=== PATIENT | female | born 1965 | race Caucasian/White ===

== ENCOUNTER 2018-09-12 07:36 | Emergency (ER) | payer OTHER ==
[~2018-09-12] VITALS: Wt 84.5 kg
[2018-09-12] MEDS ORDERED: KETOROLAC 30 MG INJ IV STA (08:18)
[2018-09-12] MEDS ORDERED: SOD CHLORIDE 0.9% 1,000 ML IV STA (08:18)
[2018-09-12] MEDS ORDERED: DEXAMETHASONE 10 MG/ML 1 ML INJ IV ONE (08:30)
[2018-09-12] MEDS ORDERED: CEFTRIAXONE 1 GM/50 ML (PMX) 50 ML IVPB ONE (08:30)
[2018-09-12] MEDS ORDERED: CEPH-443 PO (10:26)
[2018-09-12] MEDS ORDERED: SULF1TAB31 PO (10:26)
[2018-09-12] MEDS ORDERED: IBUP800T48 PO (10:27)
[2018-09-12] MEDS ORDERED: COLC0.6T6 PO (10:41)
[2018-09-12 10:42] VITALS: BP 102/59; PULSE 67; RESP 16
--- NOTE | 2018-09-12 11:08 | ERD ---
ER Documentation Chief Complaint Chief Complaint R HAND PAIN X 7 DAYS HPI 53-year-old female presenting with pain to right hand for the last 7 days. She states it started out as a small ball on the volar aspect of her right index fi nger at the MCP joint. She notes over the last few days is progressively gotten warmer and more painful. It does hurt for her to move her finger. Denies any numbness or tingling. Is right-hand dominant. Denies any traumatic injury. Denies other medical problems. NKDA. Surgical history hysterectomy. Social history denies ROS All systems reviewed and are negative except as per history of present illness. Medications Home Meds Active Scripts Colchicine* (Colcrys*) 0.6 Mg Tablet, 0.6 MG PO ONCE, #3 TAB Prov:JOEL MARTIN PA-C 09/12/18 Ibuprofen* (Motrin*) 800 Mg Tab, 800 MG PO Q6, #30 TAB Prov:JOEL MARTIN PA-C 09/12/18 Sulfamethoxazole/Trimethoprim* (Bactrim Ds* Tablet) 1 Each Tablet, 1 TAB PO BID, #14 TAB Prov:JOEL MARTIN PA-C 09/12/18 Cephalexin* (Keflex*) 500 Mg Capsule, 500 MG PO QID for 7 Days, CAP Prov:JEOL MARTIN PA-C 09/12/18 Allergies Allergies: Coded Allergies: No Known Allergy (Unverified , 09/12/18) PMhx/Soc Medical and Surgical Hx: pt denies Medical Hx History of Surgery: Yes (tubal ligation) Anesthesia Reaction: No Hx Alcohol Use: Yes (occassional) Hx Substance Use: No Hx Tobacco Use: No Smoking Status: Never smoker FmHx Family History: No diabetes, No coronary disease, No other Physical Exam Vitals Vital Signs Date Temp Pulse Resp B/P (MAP) Pulse Ox O2 O2 Flow FiO2 Time Delivery Rate 09/12/18 97.9 67 16 102/59 99 Room Air 10:42 (73) 09/12/18 98.9 78 18 131/74 99 07:38 (93) Physical Exam GENERAL: The patient is well-appearing, well-nourished, in no acute distress CHEST: Clear to auscultation bilaterally. There are no rales, wheezes or rhonchi. HEART: Regular rate and rhythm. No murmurs, clicks, rubs or gallops. EXTREMITIES: Equal pulses bilaterally. There is no peripheral clubbing, cyanosis or edema. No focal swelling or erythema. Full range of motion. Grossly neurovascularly intact. NEUROLOGIC: Alert and oriented. Cranial nerves II through XII intact. Motor strength in all 4 extremities with 5 out of 5 strength. Sensation grossly intact. SKIN: Erythema noted to the volar aspect of the right index finger at the MCP joint. Some mild tenderness to palpation. No fluctuance. No induration. No lymphatic streaking Result Diagram: 09/12/18 0834 09/12/18 0834 Results 24 hrs Laboratory Tests Test 09/12/18 08:34 09/12/18 08:35 White Blood Count 7.3 10^3/ul Red Blood Count 4.09 10^6/ul Hemoglobin 12.9 g/dl Hematocrit 39.0 % Mean Corpuscular Volume 95.4 fl Mean Corpuscular Hemoglobin 31.5 pg Mean Corpuscular Hemoglobin Concent 33.1 g/dl Red Cell Distribution Width 12.8 % Platelet Count 308 10^3/UL Mean Platelet Volume 10.1 fl Immature Granulocytes % 0.300 % Neutrophils % 59.8 % Lymphocytes % 27.4 % Monocytes % 9.8 % Eosinophils % 2.0 % Basophils % 0.7 % Nucleated Red Blood Cells % 0.0 /100WBC Immature Granulocytes # 0.020 10^3/ul Neutrophils # 4.4 10^3/ul Lymphocytes # 2.0 10^3/ul Monocytes # 0.7 10^3/ul Eosinophils # 0.2 10^3/ul Basophils # 0.1 10^3/ul Nucleated Red Blood Cells # 0.0 10^3/ul Sodium Level 141 mmol/L Potassium Level 4.2 mmol/L Chloride Level 103 mmol/L Carbon Dioxide Level 29 mmol/L Anion Gap 9 Blood Urea Nitrogen 14 mg/dl Creatinine 0.54 mg/dl Est Glomerular Filtrat Rate mL/min > 60 mL/min Glucose Level 75 mg/dl Uric Acid 6.2 mg/dl Calcium Level 9.6 mg/dl Total Bilirubin 0.2 mg/dl Direct Bilirubin 0.00 mg/dl Indirect Bilirubin 0.2 mg/dl Aspartate Amino Transf (AST/SGOT) 23 IU/L Alanine Aminotransferase (ALT/SGPT) 22 IU/L Alkaline Phosphatase 77 IU/L C-Reactive Protein 0.7 mg/dl Total Protein 7.9 g/dl Albumin 4.3 g/dl Globulin 3.60 g/dl Albumin/Globulin Ratio 1.19 Erythrocyte Sedimentation Rate 17 mm/Hr Current Medications Medications Dose Sig/Sixto Start Time Status Last (Trade) Ordered Route PRN Stop Time Admin Dose Reason Admin Sodium 1,000 ml @ Q1H STAT 09/12/18 DC 09/12/18 Chloride 1,000 mls/hr IV 08:18 08:38 09/12/18 09:17 Ketorolac 30 mg ONCE STAT 09/12/18 DC 09/12/18 Tromethamine IV 08:18 08:40 (Toradol) 09/12/18 08:21 Ceftriaxone 50 ml @ ONCE ONCE 09/12/18 DC 09/12/18 Sodium 100 mls/hr IVPB 08:30 08:41 09/12/18 08:59 10 mg ONCE ONCE 09/12/18 DC 09/12/18 Dexamethasone IV 08:30 08:40 (Decadron) 09/12/18 08:31 Procedures/MDM DIAGNOSTIC IMAGING REPORT Patient: CHAO AG : 1965 Age: 53 Sex: F MR #: [id number] DOS: 09/12/18 0000 Ordering MD: LORA MARTIN PA-C Location: [facility] Room/Bed: PROCEDURE: XR index finger CLINICAL INDICATION: Pain TECHNIQUE: AP, oblique and lateral views of the right 2nd finger were obtained. COMPARISON: No prior studies are available for comparison. FINDINGS: The bones of the hand appear intact, with no evidence of fracture, dislocation, or subluxation. The joint spaces are preserved. Bone mineralization is normal. No significant soft tissue swelling is seen. RPTAT: AA IMPRESSION: Unremarkable right 2nd finger. ER course: 1 L normal saline given ED. IV Rocephin given in ED. MDM: 53-year-old female presenting with pain to right hand. I have concern for infectious process however will also treat for gout given its localized primarily to the joint. Patient's vitals are stable with stable blood work. A low suspicion for infection within the tendon however patient is recommended to return in 2 days for close evaluation. Patient is told if symptoms change or worsen to return immediately. Patient is discharged with antibiotics in addition to colchicine and pain medication. Patient is told symptoms change or worsen to return immediately to the ER. All questions answered at discharge Departure Diagnosis: Primary Impression: Cellulitis Condition: Stable Patient Instructions: Cellulitis Referrals: [facility] YOU HAVE RECEIVED A MEDICAL SCREENING EXAM AND THE RESULTS INDICATE THAT YOU DO NOT HAVE A CONDITION THAT REQUIRES URGENT TREATMENT IN THE EMERGENCY DEPARTMENT. FURTHER EVALUATION AND TREATMENT OF YOUR CONDITION CAN WAIT UNTIL YOU ARE SEEN IN YOUR DOCTORS OFFICE WITHIN THE NEXT 1-2 DAYS. IT IS YOUR RESPONSIBILITY TO MAKE AN APPOINTMENT FOR FOLOW-UP CARE. IF YOU HAVE A PRIMARY DOCTOR --you should call your primary doctor and schedule an appointment IF YOU DO NOT HAVE A PRIMARY DOCTOR YOU CAN CALL OUR PHYSICIAN REFERRAL HOTLINE AT IF YOU CAN NOT AFFORD TO SEE A PHYSICIAN YOU CAN CHOSE FROM THE FOLLOWING [facility] [address]. [facility] [address] [facility] [address] [facility] [address]. [facility] [address] [facility] [facility]. [address] Additional Instructions: FOLLOW UP WITH YOUR PRIMARY CARE PHYSICIAN TOMORROW.Return to this facility if you are not improving as expected. JOEL MARTIN PA-C Sep 12, 2018 11:08
== END 2018-09-12 10:44 | disposition home or self-care (01) ==
LOC: FTE 07:36
DX: L03.011 Cellulitis of right finger (principal)
CPT/HCPCS: 73140; 80053; 84560; 85025; 85651; 86140; J0696; J1100; J1885; J7030; 36415; 96365; 96366; 96375

== ENCOUNTER 2018-09-15 07:53 | Emergency (ER) | payer OTHER ==
[~2018-09-15] VITALS: Ht 167.6 cm; Wt 68.0 kg
[~2018-09-15 07:53] MED LIST: CEPH-443 PO; COLC0.6T6 PO; IBUP800T48 PO; SULF1TAB31 PO
[2018-09-15 07:55] VITALS: BP 132/62; PULSE 53; RESP 18; Ht 167.6 cm; Wt 68.0 kg
--- NOTE | 2018-09-15 09:04 | ERD ---
ER Documentation Chief Complaint Chief Complaint told to come back for rt hand recheck. HPI 53-year-old female was seen here 2 days ago for some redness and swelling on the right hand. She is taking antibiotics. Her pain and swelling is significantly improved. She had a normal x-ray. She has no restricted range of motion, weakness, deficits, fevers. ROS All systems reviewed and are negative except as per history of present illness. Medications Home Meds Active Scripts Colchicine* (Colcrys*) 0.6 Mg Tablet, 0.6 MG PO ONCE, #3 TAB Prov:JOEL MARTIN PA-C 09/12/18 Ibuprofen* (Motrin*) 800 Mg Tab, 800 MG PO Q6, #30 TAB Prov:JOEL MARTIN PA-C 09/12/18 Sulfamethoxazole/Trimethoprim* (Bactrim Ds* Tablet) 1 Each Tablet, 1 TAB PO BID, #14 TAB Prov:JOEL MARTIN PA-C 09/12/18 Cephalexin* (Keflex*) 500 Mg Capsule, 500 MG PO QID for 7 Days, CAP Prov:JOEL MARTIN PA-C 09/12/18 Allergies Allergies: Coded Allergies: No Known Allergy (Unverified , 09/12/18) PMhx/Soc History of Surgery: Yes (tubal ligation) Anesthesia Reaction: No Hx Alcohol Use: Yes (occassional) Hx Substance Use: No Hx Tobacco Use: No FmHx Family History: No diabetes, No coronary disease, No other Physical Exam Vitals Vital Signs Date Temp Pulse Resp B/P (MAP) Pulse Ox O2 O2 Flow FiO2 Time Delivery Rate 09/15/18 97.8 53 18 132/62 100 07:55 (85) Physical Exam Const: No acute distress Head: Atraumatic Eyes: Normal Conjunctiva ENT: Normal External Ears, Nose and Mouth. Neck: Full range of motion. No meningismus. Resp: Clear to auscultation bilaterally Cardio: Regular rate and rhythm, no murmurs Abd: Soft, non tender, non distended. Normal bowel sounds Skin: No petechiae or rashes Back: No midline or flank tenderness Ext: No cyanosis, or edema. Minimal tenderness at the right second metacarpal phalangeal joint on the palmar aspect. No erythema, warmth, deformities, restricted range of motion or weakness. Cap refill is less than 2 seconds. Neur: Awake and alert Psych: Normal Mood and Affect Procedures/MDM Patient presents with improving right hand pain consistent with a resolving unspecified infection. Current signs or symptoms do not suggest osteomyelitis, deficits, ischemia. She will discharged home with continuation of antibiotics and return precautions for worsening redness, fevers, new worsening symptoms. Departure Diagnosis: Primary Impression: Cellulitis Site of cellulitis: unspecified site Qualified Codes: L03.90 - Cellulitis, unspecified Condition: Stable Patient Instructions: Cellulitis Additional Instructions: Condition appears to be improving. Recheck for worsening redness, pain, swelling, new worsening symptoms. Finish antibiotics. YAHIR SLOAN MD Sep 15, 2018 09:04
== END 2018-09-15 09:30 | disposition home or self-care (01) ==
LOC: FTE 07:53
DX: L03.113 Cellulitis of right upper limb (principal)
CPT/HCPCS: 99282